=== PATIENT | male | born 1990 | race Caucasian/White ===

== ENCOUNTER → 2016-03-30 | Outpatient (CLI) | payer OTHER ==
--- NOTE | 2016-04-01 06:21 | SLEEPCENT ---
DATE OF PROCEDURE: 03/30/2016 ORDERED BY: Nahomi Cruz Nocturnal polysomnography was performed due to concern for the obstructive sleep apnea syndrome in this patient with a history of excessive somnolence, morning headaches and impaired cognition. 7 hours and 48 minutes of data were reviewed. There were 431 minutes of sleep identified. Sleep latency was normal at 12.5 minutes. Rapid eye movement (REM) latency was short at 14.5 minutes. Sleep architecture was good with significant REM appreciated. Overall sleep efficiency was 93.1%. The patient's electrocardiogram (EKG) showed a sinus rhythm with an average heart rate of 58 beats per minute. Electroencephalogram (EEG) showed normal waveforms for awake and sleep. There were only 6 respiratory events identified of 10 seconds in duration or greater for an apnea-hypopnea index within normal limits at 0.8. Snoring was noted over the course of the study, but arousals from snoring were few at 1 per hour. Some limb activity was noted, but arousals from limb events were few at 3.9 times per hour. Oxygen saturations remained normal. IMPRESSION: Normal nocturnal polysomnography with early REM onset.
== END ==
LOC: M SLEEP 20:16
PROVIDERS: ATTEND Nurse Practitioner Adult Health
DX: G47.30 Sleep apnea, unspecified (principal); R40.0 Somnolence

== ENCOUNTER 2016-05-23 19:41 | Outpatient (CLI) | payer OTHER | END 2016-05-24 14:30 | disposition home or self-care (01) | LOC: M SLEEP 19:41 | PROVIDERS: ATTEND Nurse Practitioner Adult Health | DX: R40.0 Somnolence (principal) ==

== ENCOUNTER → 2017-02-01 | Outpatient (REF) | payer OTHER ==
[2017-02-08 01:09] LABS: DQA1*01:02 Positive (.); DQB1*06:02 Negative (.)
== END ==
LOC: M LAB REF 17:33
PROVIDERS: ATTEND Internal Medicine Pulmonary Disease
DX: G47.419 Narcolepsy without cataplexy (principal)

== ENCOUNTER 2017-07-04 23:02 | Emergency (ER) | payer OTHER ==
[2017-07-05] MEDS: KETOROLAC 60 MG/2 ML VIAL (J1885) IM (00:19)
[2017-07-05] MEDS: CYCLOBENZAPRINE 10 MG TAB PO (00:20)
== END 2017-07-05 00:42 | disposition home or self-care (01) ==
LOC: M ED 23:02
DX: S39.012A Strain of muscle, fascia and tendon of lower back, initial encounter (principal); V43.52XA Car driver injured in collision with other type car in traffic accident, initial encounter; Y92.410 Unspecified street and highway as the place of occurrence of the external cause; Y93.89 Activity, other specified; Y99.9 Unspecified external cause status
CPT/HCPCS: J1885

== ENCOUNTER → 2018-08-14 | Outpatient (CLI) | payer OTHER ==
[~2018-08-14] MED LIST: CYCL10TA PO; METHACHOLINE KIT (J7674) INH ONE; NAPR-837 PO
--- NOTE | 2018-08-14 16:12 | PFTRPT ---
Height: 74.00 Inches Weight: 214.00 Lbs BSA: 2.24 Diagnosis: R06.02 DATE OF PROCEDURE: 08/14/2018 ORDERED BY: Dr. Dunn INTERPRETATION: Study of excellent technical quality. Under protocol, methacholine was administered. At a dose of 2.5 mg (13.875 CDUs), a 34% decline in the FEV1 was noted. PC of 0.49 is significant. Flow rates did return to baseline post bronchodilator administration. IMPRESSION: Positive methacholine challenge study. MTDD
== END ==
LOC: M CARPUL 14:37
PROVIDERS: ATTEND Internal Medicine Pulmonary Disease
DX: R06.02 Shortness of breath (principal)
CPT/HCPCS: 94070; J7674

== ENCOUNTER 2018-09-21 18:44 | Emergency (ER) | payer OTHER ==
[~2018-09-21] VITALS: Ht 188 cm; Wt 95.5 kg
[~2018-09-21 18:44] MED LIST changes: -METHACHOLINE KIT (J7674) INH ONE
[2018-09-21] MEDS ORDERED: ADVA115A INH (18:49)
[2018-09-21] MEDS ORDERED: KEFL500C17 PO (20:23)
[2018-09-21] MEDS ORDERED: MUPI2OI TOP (20:26)
[2018-09-21] MEDS ORDERED: CEPHALEXIN 500 MG CAP PO ONE (20:30)
[2018-09-21] MEDS ORDERED: NEOSPORIN TOP OINT 15GM TOP PRN (20:30)
[2018-09-21] MEDS ORDERED: MUPIROCIN 2% OINT 22 GM TUBE TOP ONE (20:30)
[2018-09-21 20:31] VITALS: BP 142/88
[2018-09-21] MEDS ORDERED: ADACEL/BOOSTRIX VACCINE (DIPHTH/PERTUSS/ACELL/TETANUS)0.5ML SYR (90715) IM ONE (20:45)
== END 2018-09-21 20:54 | disposition home or self-care (01) ==
LOC: M ED 18:44
DX: S50.01XA Contusion of right elbow, initial encounter (principal); S50.811A Abrasion of right forearm, initial encounter; Y35.891A Legal intervention involving other specified means, law enforcement official injured, initial encounter; Y99.0 Civilian activity done for income or pay; Z79.51 Long term (current) use of inhaled steroids

== ENCOUNTER → 2021-07-13 | Outpatient (CLI) | payer OTHER ==
[~2021-07-13] MED LIST changes: +ADVA115A INH; +CYCL-707 PO; -CYCL10TA PO; +KEFL500C17 PO; +MUPI2OI TOP
== END ==
LOC: M SLEEP HO 06-30 12:18
PROVIDERS: ATTEND Internal Medicine Pulmonary Disease
DX: R06.83 Snoring (principal)

== ENCOUNTER 2022-08-20 15:04 | Emergency (ER) | payer OTHER ==
[~2022-08-20] VITALS: Ht 188 cm; Wt 116.1 kg
[2022-08-20 15:05] VITALS: BP 144/110
[2022-08-20] MEDS ORDERED: MODA100T13 (15:50)
[2022-08-20] MEDS ORDERED: BREO1INH (15:50)
[2022-08-20] MEDS ORDERED: VENL37.598 (15:50)
== END 2022-08-20 16:51 | disposition left against medical advice (07) ==
LOC: M ED 15:04
DX: Z53.21 Procedure and treatment not carried out due to patient leaving prior to being seen by health care provider (principal)

== ENCOUNTER → 2023-01-10 | Outpatient (CLI) | payer OTHER ==
[~2023-01-10] MED LIST changes: +BREO1INH; +E-Z-GAS II EFFERVESCENT PACKET (SODIUM BICARB./CITRIC ACID/SIMETHICONE) As Ordered ONE; +E-Z-HD 98% w/w 340GM SUSP BTL As Ordered ONE; +E-Z-PAQUE 96% w/w SUSP 176GM BTL As Ordered ONE; +MODA100T13; +VENL37.598
== END ==
LOC: M RAD 09:49
PROVIDERS: ATTEND Physician Assistant
DX: K21.9 Gastro-esophageal reflux disease without esophagitis (principal); R13.10 Dysphagia, unspecified; K44.9 Diaphragmatic hernia without obstruction or gangrene; K22.2 Esophageal obstruction; K22.89 Other specified disease of esophagus

== ENCOUNTER 2023-04-27 12:14 | Day surgery (SDC) | payer OTHER ==
[~2023-04-27] VITALS: Ht 188 cm; Wt 117.7 kg
[~2023-04-27 12:14] MED LIST changes: +BREO1INH INH; +CETI10CA13 PO; -E-Z-GAS II EFFERVESCENT PACKET (SODIUM BICARB./CITRIC ACID/SIMETHICONE) As Ordered ONE; -E-Z-HD 98% w/w 340GM SUSP BTL As Ordered ONE; -E-Z-PAQUE 96% w/w SUSP 176GM BTL As Ordered ONE; +MODA100T13 PO; +OMEP40CA4 PO; +VENL37.52 PO
[2023-04-27] MEDS: NS 1,000 ML IV ONE (13:30)
[2023-04-27] MEDS ORDERED: fentaNYL 100 MCG/2 ML INJECTION As Ordered ONE (14:09)
[2023-04-27] MEDS ORDERED: propofoL 200 MG/20 ML VIAL As Ordered ONE (14:39)
[2023-04-27 15:14] VITALS: BP 130/70; O2SAT 99
== END 2023-04-27 15:14 | disposition home or self-care (01) ==
LOC: M OPP 12:14
PROVIDERS: ATTEND Internal Medicine Gastroenterology
DX: K44.9 Diaphragmatic hernia without obstruction or gangrene (principal); K31.89 Other diseases of stomach and duodenum; K29.70 Gastritis, unspecified, without bleeding; K20.0 Eosinophilic esophagitis; R12 Heartburn; Z79.51 Long term (current) use of inhaled steroids; Z79.52 Long term (current) use of systemic steroids; Z79.899 Other long term (current) drug therapy
CPT/HCPCS: 43239; 43249; 88305; J3010

== ENCOUNTER 2023-08-18 13:07 | Emergency (ER) | payer OTHER ==
[~2023-08-18] VITALS: Ht 188 cm; Wt 126.7 kg
[2023-08-18 14:54] VITALS: BP 153/98; TEMP 98.2; O2SAT 100
== END 2023-08-18 15:02 | disposition home or self-care (01) ==
LOC: M ED 13:07
DX: S99.911A Unspecified injury of right ankle, initial encounter (principal); X50.1XXA Overexertion from prolonged static or awkward postures, initial encounter; Y92.9 Unspecified place or not applicable; Y93.9 Activity, unspecified; Y99.0 Civilian activity done for income or pay; J45.909 Unspecified asthma, uncomplicated; Z79.899 Other long term (current) drug therapy

== ENCOUNTER 2024-10-24 21:36 | Emergency (ER) | payer OTHER ==
[~2024-10-24] VITALS: Ht 188 cm; Wt 109.1 kg
[2024-10-24 23:08] VITALS: BP 140/102; TEMP 97.5; O2SAT 99
== END 2024-10-24 23:18 | disposition home or self-care (01) ==
LOC: M ED 21:36
DX: S60.221A Contusion of right hand, initial encounter (principal); W51.XXXA Accidental striking against or bumped into by another person, initial encounter; Y92.9 Unspecified place or not applicable; Y93.9 Activity, unspecified; Y99.0 Civilian activity done for income or pay; J30.89 Other allergic rhinitis; Z79.899 Other long term (current) drug therapy

== ENCOUNTER → 2024-12-09 | Outpatient (REF) | payer OTHER | LOC: M LAB REF 13:58 | PROVIDERS: ATTEND Student in an Organized Health Care Education/Training Program | DX: Z00.00 Encounter for general adult medical examination without abnormal findings (principal); R53.83 Other fatigue; R68.82 Decreased libido ==

== ENCOUNTER 2025-03-06 14:28 | Emergency (ER) | payer OTHER ==
[~2025-03-06] VITALS: Ht 188 cm; Wt 129.8 kg
[2025-03-06 14:32] VITALS: BP 141/95; TEMP 97.4; O2SAT 97
[2025-03-06] MEDS ORDERED: ALBU8.5H (14:42)
[2025-03-06] MEDS: ALBUTEROL SULFATE 2.5 MG/0.5 ML INH CONCENTRATE NEB SOLN NEB ONE (15:42)
== END 2025-03-06 15:53 | disposition home or self-care (01) ==
LOC: M ED 15:09
DX: S09.90XA Unspecified injury of head, initial encounter (principal); J45.901 Unspecified asthma with (acute) exacerbation; Y04.8XXA Assault by other bodily force, initial encounter; Y92.9 Unspecified place or not applicable; Y93.89 Activity, other specified; Y99.0 Civilian activity done for income or pay; J30.89 Other allergic rhinitis; Z79.899 Other long term (current) drug therapy